=== PATIENT | female | born 1965 | race Two or more races ===

== ENCOUNTER 2019-07-09 09:27 | Inpatient (IN) | payer OTHER ==
[2019-07-09] MEDS ORDERED: IBUPROFEN 800 MG TABLET PO ONE (10:28)
--- NOTE | 2019-07-09 10:31 | ER Document Report ---
ED Medical Screen (RME) - General Chief Complaint: Foot Pain Stated Complaint: FOOT PAIN Time Seen by Provider: 07/09/19 10:09 Mode of Arrival: Wheelchair Information source: Patient Notes: This 54-year-old female Lao-speaking presents emergency department with complaints of bilateral leg pain. Patient has history of diabetes and high blood pressure. Patient has an ulcer to the right medial lower leg. Patient reports she has had an ulcer there for the last 8 to 10 months that is getting larger with pain increasing. Patient has been in the [place] for 1 month does not have a primary care provider. Reports she takes Lantus and metformin for her diabetes but does not check her sugar. She denies fever nausea vomiting reports a headache. Right medial lower leg with decubitus erythema some yellow drainage discoloration with good pedal pulse good cap refill. Patient also complains of bilateral hand pain. I have greeted and performed a rapid initial assessment of this patient. A comprehensive ED assessment and evaluation of the patient, analysis of test results and completion of the medical decision making process will be conducted by additional ED providers. Dictation of this chart was performed using voice recognition software; therefore, there may be some unintended grammatical errors. TRAVEL OUTSIDE OF THE [place] IN LAST 30 DAYS: No - Related Data Allergies/Adverse Reactions: No Known Allergies Allergy (Verified 07/09/19 09:28) Physical Exam - Vital signs Vitals: Temp Pulse Resp BP Pulse Ox 98.8 F 72 18 132/68 H 97 07/09/19 09:32 07/09/19 09:32 07/09/19 09:32 07/09/19 09:32 07/09/19 09:32 Course - Vital Signs Vital signs: Temp Pulse Resp BP Pulse Ox 98.8 F 72 18 132/68 H 97 07/09/19 09:32 07/09/19 09:32 07/09/19 09:32 07/09/19 09:32 07/09/19 09:32
[2019-07-09 11:06] LABS: ABSOLUTE EOSINOPHILS # (AUTO) 0.3 10^3/uL (0.0-0.6); ABSOLUTE MONOCYTES (AUTO) 0.5 10^3/uL (0.1-1.4); ABSOLUTE NEUT (AUTO) 6.5 10^3/uL (1.7-8.2); BASOPHILS % (AUTO) 0.4 % (0-2); HEMATOCRIT 38.9 % (36.0-47.0); HEMOGLOBIN 13.4 g/dL (12.0-15.5); MEAN CORPUSCULAR HGB CONC 34.5 g/dL (32.0-36.0); MEAN CORPUSCULAR VOLUME 90 fl (80-97); MONOCYTES % (AUTO) 5.2 % (3-13); PLATELET COUNT 204 10^3/uL (150-450); RED BLOOD COUNT 4.32 10^6/uL (3.72-5.28); SEGMENTED NEUTROPHILS % (AUTO) 62.4 % (42-78); TOTAL CELLS COUNTED % (AUTO) 100 %; WHITE BLOOD COUNT 10.4 10^3/uL (4.0-10.5)
[2019-07-09 11:21] LABS: ALBUMIN 4.1 g/dL (3.5-5.0); ALKALINE PHOSPHATASE 93 U/L (38-126); ANION GAP 11 (5-19); ASPARTATE AMINO TRANSFERASE 20 U/L (14-36); BILIRUBIN,DIRECT 0.2 mg/dL (0.0-0.4); BILIRUBIN,TOTAL 0.5 mg/dL (0.2-1.3); BLOOD UREA NITROGEN 17 mg/dL (7-20); CALCIUM 9.9 mg/dL (8.4-10.2); CARBON DIOXIDE 26 mmol/L (22-30); CHLORIDE 103 mmol/L (98-107); GLUCOSE 150 mg/dL (75-110); POTASSIUM 3.6 mmol/L (3.6-5.0); TOTAL PROTEIN 7.1 g/dL (6.3-8.2)
--- NOTE | 2019-07-09 11:46 | RADIOLOGY REPORT (SQ) ---
EXAM DESCRIPTION: TIBIA FIBULA RIGHT COMPLETED DATE/TIME: 07/09/2019 11:07 am REASON FOR STUDY: pain, ulcer COMPARISON: None. NUMBER OF VIEWS: Two views. TECHNIQUE: Two radiographic images acquired of the right tibia and fibula to include the knee and an kle in at least one projection. LIMITATIONS: None. FINDINGS: MINERALIZATION: Normal. BONES: There is periosteal reaction along the medial aspect of the proximal tibial shaft. SOFT TISSUES: Vascular calcifications. OTHER: No other significant finding. IMPRESSION: Osteomyelitis proximal tibia. TECHNICAL DOCUMENTATION: JOB ID: [id number] [employer]- All Rights Reserved Reading location - IP/workstation name: [email or web address]
--- NOTE | 2019-07-09 13:57 | ER Document Report ---
ED General - General Chief Complaint: Foot Pain Stated Complaint: FOOT PAIN Time Seen by Provider: 07/09/19 10:09 Mode of Arrival: Wheelchair Notes: 54-year-old female with history of insulin-dependent diabetes mellitus and hypertension presents to the emergency department with chief complaint of a large ulcer on her right medial malleolus that has been present for the past 1 year. Patient states that she has had persistent skin issues there for years. Patient has a remote history of a left leg surgery for venous insufficiency. Patient recently moved here from [place] approximately 1 month ago and has not had primary care. Patient denies any fevers or chills, nausea or vomiting, does complain of headache. Patient states that she does have tenderness over the right medial malleolus with some mild discharge. No other complaints. TRAVEL OUTSIDE OF THE [place] IN LAST 30 DAYS: No - Related Data Allergies/Adverse Reactions: No Known Allergies Allergy (Verified 07/09/19 09:28) Past Medical History - General Information source: Patient - Social History Smoking Status: Unknown if Ever Smoked Family History: None Patient has suicidal ideation: No Patient has homicidal ideation: No - Past Medical History Cardiac Medical History: Reports: Hx Hypertension Endocrine Medical History: Reports: Hx Diabetes Mellitus Type 1 Renal/ Medical History: Denies: Hx Peritoneal Dialysis Review of Systems - Review of Systems Constitutional: See HPI EENT: No symptoms reported Cardiovascular: No symptoms reported Respiratory: No symptoms reported Gastrointestinal: See HPI Genitourinary: No symptoms reported Female Genitourinary: No symptoms reported Musculoskeletal: No symptoms reported Skin: See HPI Hematologic/Lymphatic: No symptoms reported Neurological/Psychological: No symptoms reported Physical Exam - Vital signs Vitals: Temp Pulse Resp BP Pulse Ox 98.8 F 72 18 132/68 H 97 07/09/19 09:32 07/09/19 09:32 07/09/19 09:32 07/09/19 09:32 07/09/19 09:32 Course - Re-evaluation Re-evalutation: 07/09/19 14:09 Patient is well-appearing and nontoxic. X-ray showed a proximal right tibia osteomyelitis. I spoke with hospitalist, Dr. Samuels, who accepted patient for full admission to the medical floor. - Vital Signs Vital signs: Temp Pulse Resp BP Pulse Ox 98.8 F 72 18 132/68 H 97 07/09/19 09:32 07/09/19 09:32 07/09/19 09:32 07/09/19 09:32 07/09/19 09:32 - Laboratory Result Diagrams: 07/09/19 10:55 07/09/19 10:55 Laboratory results interpreted by me: 07/09/19 07/09/19 10:32 10:55 Creatinine 0.48 L Glucose 150 H POC Glucose 141 H Discharge - Discharge Clinical Impression: Osteomyelitis Qualifiers: Osteomyelitis type: unspecified type Osteomyelitis location: tibia Laterality: right Qualified Code(s): M86.9 - Osteomyelitis, unspecified Condition: Stable Disposition: ADMITTED INPATIENT Admitting Provider: Abril (Hospitalist) Unit Admitted: Medical Floor
[2019-07-09] MEDS ORDERED: TEMAZEPAM 7.5 MG CAPSULE PO PRN (16:16)
[2019-07-09] MEDS ORDERED: ACETAMINOPHEN 325 MG TABLET PO PRN (16:16)
[2019-07-09] MEDS ORDERED: MAG HYDROX/AL HYDROX/SIMETH SUSP 30 ML UDCUP PO PRN (16:16)
[2019-07-09] MEDS ORDERED: PROMETHAZINE HCL 25 MG TABLET PO PRN (16:16)
[2019-07-09] MEDS ORDERED: MAGNESIUM HYDROXIDE SUSP 30 ML UDCUP PO PRN (16:16)
[2019-07-09] MEDS ORDERED: IBUPROFEN 600 MG TABLET PO PRN (16:24)
[2019-07-09] MEDS ORDERED: GLUCAGON,HUMAN RECOMB 1 MG INJ IM PRN (16:24)
[2019-07-09] MEDS ORDERED: DEXTROSE 40% GEL 15 GM TUBE PO PRN ×2 (16:24)
[2019-07-09] MEDS ORDERED: DEXTROSE 50%-WATER 25 GM/50 ML DISP.SYRIN IV PRN ×2 (16:24)
--- NOTE | 2019-07-09 16:38 | PDOC H&P ---
History of Present Illness Admission Date/PCP: 07/09/19 14:28 Patient complains of: Painful ulcer right medial malleolus History of Present Illness: LORENA EDEN is a 54 year old female with history of left medial malleolar ulcer thought to be from venous insufficiency. There is an incision on her leg in the family states that after the incision the wound healed. It is likely a venous surgery. She has a similar ulcer on the right medial malleolus. It is quite painful. There was the pain that prompted the emergency department visit. She has a normal white blood cell count and a mildly elevated sed rate. Serum chemistries are unremarkable. She has a history of diabetes and plain films suggest osteomyelitis on the proximal tibia. She was referred to the hospital service for admission, further evaluation of osteomyelitis and wound care. Past Medical History Cardiac Medical History: Reports: Hypertension, Other - Venous insufficiency with ulceration EENT Medical History: Reports: None Neurological Medical History: Reports: None Endocrine Medical History: Reports: Diabetes Mellitus Type 2 Renal/ Medical History: Denies: Chronic Kidney Disease, Nephrolithiasis Malignancy Medical History: Reports: None GI Medical History: Reports: None Musculoskeltal Medical History: Reports: None Skin Medical History: Reports: None Psychiatric Medical History: Denies: Alcohol Dependency, Dementia, Depression, Substance Abuse, Tobacco Dependency Traumatic Medical History: Reports: None Hematology: Reports: None Infectious Medical History: Reports: None Past Surgical History Past Surgical History: Reports: Hysterectomy, Orthopedic Surgery - Left foot surgery, Vascular Surgery - Vein surgery left leg Social History Information Source: Patient, Relative - As the patient is only Slovak-speaking her daughter and son-in-law were able to interpret Lives with: Family Smoking Status: Never Smoker Frequency of Alcohol Use: None Hx Recreational Drug Use: No Hx Prescription Drug Abuse: No - Advance Directive Resuscitation Status: Full Code Surrogate healthcare decision maker:: The patient's daughter Family History Family History: None, DM Parental Family History Reviewed: Yes Children Family History Reviewed: Yes Sibling(s) Family History Reviewed.: Yes Medication/Allergy Home Medications: Cetirizine HCl [Zyrtec 10 mg Tablet] 10 mg PO DAILY 07/09/19 Glyburide [Diabeta 5 mg Tablet] 5 mg PO ACBRKFST 07/09/19 Ibuprofen [Motrin 800 mg Tablet] 800 mg PO Q8HP PRN 07/09/19 Insulin Glargine,Hum.rec.anlog [Lantus Insulin 100 Unit/1 ml 10 ml] 38 units SQ QPM 07/09/19 Losartan Potassium [Cozaar 50 mg Tablet] 50 mg PO DAILY 07/09/19 Allergies/Adverse Reactions: No Known Allergies Allergy (Verified 07/09/19 09:28) Review of Systems Constitutional: PRESENT: as per HPI. ABSENT: fever(s), headache(s) Eyes: ABSENT: visual disturbances Ears: ABSENT: hearing changes Nose, Mouth, and Throat: ABSENT: headache(s), mouth pain, sore throat Cardiovascular: PRESENT: edema, other - History of venous insufficiency and varicose veins. ABSENT: chest pain, dyspnea on exertion, palpitations Respiratory: ABSENT: cough, dyspnea, sputum Gastrointestinal: ABSENT: abdominal pain, bloating, constipation, diarrhea, heartburn, nausea, vomiting Genitourinary: ABSENT: difficulty urinating, dysuria, hematuria Musculoskeletal: ABSENT: back pain, deformity, joint swelling Integumentary: PRESENT: wounds - Ulceration right medial malleolus. Scar from previous ulcer left medial malleolus., other. ABSENT: rash Neurological: ABSENT: abnormal gait, abnormal speech, numbness, syncope, tremor(s) Psychiatric: ABSENT: anxiety, depression, hallucinations Endocrine: ABSENT: cold intolerance, heat intolerance, polydipsia, polyphagia, polyuria Hematologic/Lymphatic: ABSENT: easy bleeding, easy bruising, lymphadenopathy Allergic/Immunologic: ABSENT: seasonal rhinorrhea Physical Exam Vital Signs: Temp Pulse Resp BP Pulse Ox 97.5 F 50 L 16 149/67 H 100 07/09/19 15:55 07/09/19 15:55 07/09/19 15:55 07/09/19 15:55 07/09/19 15:55 Intake & Output 07/08/19 07/09/19 07/10/19 06:59 06:59 06:59 Weight 68.4 kg General appearance: PRESENT: no acute distress, cooperative, well-developed Head exam: PRESENT: atraumatic, normocephalic Eye exam: PRESENT: conjunctiva pink. ABSENT: conjunctival injection, scleral icterus Ear exam: PRESENT: normal external ear exam. ABSENT: bleeding, drainage Mouth exam: PRESENT: moist, neck supple, tongue midline Teeth exam: ABSENT: dental caries, poor dentation Neck exam: ABSENT: carotid bruit, JVD, lymphadenopathy, tenderness Respiratory exam: PRESENT: clear to auscultation flaquita, symmetrical, unlabored. ABSENT: accessory muscle use, rales, rhonchi, tachypnea, wheezes Cardiovascular exam: PRESENT: RRR, +S1, +S2. ABSENT: diastolic murmur, systolic murmur Pulses: PRESENT: normal radial pulses, normal dorsalis pedis pul GI/Abdominal exam: PRESENT: normal bowel sounds, soft. ABSENT: distended, guarding, tenderness Rectal exam: PRESENT: deferred Gentrourinary exam: ABSENT: indwelling catheter Extremities exam: PRESENT: other - Large ulcer right medial malleolus. ABSENT: clubbing, joint swelling, pedal edema Musculoskeletal exam: PRESENT: ambulatory, normal inspection - With the exception of the ulcer on the right leg. ABSENT: deformity Neurological exam: PRESENT: alert, awake, oriented to person, oriented to place, oriented to situation, CN II-XII grossly intact Psychiatric exam: PRESENT: appropriate affect. ABSENT: agitated, anxious Focused psych exam: ABSENT: delusional, restlessness Skin exam: PRESENT: dry, normal color, warm. ABSENT: rash Results Laboratory Results: 07/09/19 10:55 07/09/19 10:55 07/09/19 07/09/19 10:55 10:55 WBC 10.4 RBC 4.32 Hgb 13.4 Hct 38.9 MCV 90 MCH 31.0 MCHC 34.5 RDW 13.0 Plt Count 204 Seg Neutrophils % 62.4 Sodium 139.9 Potassium 3.6 Chloride 103 Carbon Dioxide 26 Anion Gap 11 BUN 17 Creatinine 0.48 L Est GFR ( Amer) > 60 Glucose 150 H Calcium 9.9 Total Bilirubin 0.5 AST 20 Alkaline Phosphatase 93 Total Protein 7.1 Albumin 4.1 Impressions: Tibia/Fibula X-Ray 07/09/19 10:26 IMPRESSION: Osteomyelitis proximal tibia. Assessment and Plan - Diagnosis (1) Osteomyelitis Qualifiers: Osteomyelitis type: other acute Osteomyelitis location: tibia Laterality: right Qualified Code(s): M86.161 - Other acute osteomyelitis, right tibia and fibula Is this a current diagnosis for this admission?: Yes Plan: 07/09/2019-the patient presented for painful right leg ulcer. Plain films demonstrated abnormal cortex on the proximal tibia. Her sed rate was slightly elevated at 36. Before initiating long-term antibiotics we will obtain an MRI study. (2) Ulcer of right lower leg Is this a current diagnosis for this admission?: Yes Plan: 07/09/2019-the patient has a history of venous insufficiency ulcer on the left medial malleolus. She had some type of vascular surgery on the left. The ulcer healed. It was likely a procedure for venous insufficiency. She is being seen at the wound clinic so I will have Dr. Mihaela Brunre consult while she is in the hospital. I have ordered venous studies as well. (3) Venous insufficiency of both lower extremities Is this a current diagnosis for this admission?: Yes Plan: 07/09/2019-she does have some varicosities and the family believes that the surgery on the left leg was related to her veins. Since the venous ulcer healed I agree. Ultrasound studies will be ordered. Dr. Mihaela Bruner will be seen the patient in consultation. (4) Diabetes mellitus type 2 in nonobese Is this a current diagnosis for this admission?: Yes Plan: 07/09/2019-we will continue the patient's Lantus, metformin and glyburide. She will also be on a sliding scale. Accu-Cheks before meals and at bedtime. - Time Time Spent with patient: 35 or more minutes Medications reviewed and adjusted accordingly: Yes Anticipated discharge: Home - Inpatient Certification Based on my medical assessment, after consideration of the patient's comorbidities, presenting symptoms, or acuity I expect that the services needed warrant INPATIENT care.: Yes I certify that my determination is in accordance with my understanding of Medicare's requirements for reasonable and necessary INPATIENT services [42 CFR 412.3e].: Yes Medical Necessity: Need for Pain Control, Need for IV Antibiotics Post Hospital Care: D/C Coating Engineer Documentation
[2019-07-09] MEDS ORDERED: VANCOMYCIN HCL 0 MG in DEXTROSE 5%-WATER 250 ML IV NR (16:45)
[2019-07-09] MEDS ORDERED: PIPERACILLIN/TAZOBACTAM 3.375 GM VIAL IV PRN (17:15)
[2019-07-09] MEDS ORDERED: VANCOMYCIN HCL INJ 1000 MG VIAL IV PRN (17:17)
[2019-07-09] MEDS ORDERED: INSULIN LISPRO 100 UNIT/ML 3 ML VIAL ONE (17:34)
[2019-07-09] MEDS ORDERED: INSULIN LISPRO 100 UNIT/ML 3 ML VIAL SUBCUT ONE (17:45)
[2019-07-09] MEDS ORDERED: VANCOMYCIN HCL INJ 1000 MG VIAL ONE (17:45)
[2019-07-09] MEDS ORDERED: VANCOMYCIN HCL INJ 500 MG VIAL ONE (17:45)
[2019-07-09] MEDS ORDERED: PIPERACILLIN/TAZOBACTAM 3.375 GM VIAL IV ONE (17:47)
[2019-07-09] MEDS: HYDROCORTISONE 1% CREAM 28.35 GM TP SCH (18:22)
[2019-07-09] MEDS: VANCOMYCIN HCL 1,250 MG in DEXTROSE 5%-WATER 250 ML IV SCH (18:22)
[2019-07-09] MEDS: PIPERACILLIN SODIUM/TAZOBACTAM 3.375 GM in NORMAL SALINE 100 ML IV SCH (20:19)
[2019-07-09] MEDS ORDERED: INSULIN GLARGINE,HUM.REC.ANLOG 1,000 UNIT/10 ML VIAL (PYX) SUBCUT ONE (21:32)
[2019-07-09] MEDS: INSULIN LISPRO 100 UNIT/ML 3 ML VIAL SUBCUT SCH (21:34)
[2019-07-09] MEDS: INSULIN GLARGINE,HUM.REC.ANLOG 1,000 UNIT/10 ML VIAL SUBCUT SCH (21:34)
[2019-07-09] MEDS: ATORVASTATIN CALCIUM 10 MG TABLET PO SCH (21:35)
[2019-07-10] MEDS: PIPERACILLIN SODIUM/TAZOBACTAM 3.375 GM in NORMAL SALINE 100 ML IV SCH ×4 (01:56→17:35)
[2019-07-10] MEDS: PANTOPRAZOLE SODIUM 40 MG TABLET.DR PO SCH (06:20)
[2019-07-10] MEDS: VANCOMYCIN HCL 1,250 MG in DEXTROSE 5%-WATER 250 ML IV SCH (07:29)
[2019-07-10] MEDS: METFORMIN HCL 500 MG TABLET PO SCH ×2 (07:31→17:35)
[2019-07-10] MEDS: INSULIN LISPRO 100 UNIT/ML 3 ML VIAL SUBCUT SCH ×4 (07:37→21:14)
[2019-07-10 08:10] LABS: ABSOLUTE EOSINOPHILS # (AUTO) 0.5 10^3/uL (0.0-0.6); ABSOLUTE LYMPHOCYTES (AUTO) 2.7 10^3/uL (0.5-4.7); ABSOLUTE MONOCYTES (AUTO) 0.4 10^3/uL (0.1-1.4); ABSOLUTE NEUT (AUTO) 3.5 10^3/uL (1.7-8.2); BASOPHILS % (AUTO) 0.5 % (0-2); EOSINOPHILS % (AUTO) 7.3 % (0-6); HEMATOCRIT 35.5 % (36.0-47.0); HEMOGLOBIN 12.4 g/dL (12.0-15.5); LYMPHOCYTES % (AUTO) 37.7 % (13-45); MEAN CORPUSCULAR HEMOGLOBIN 31.3 pg (27.0-33.4); MEAN CORPUSCULAR VOLUME 89 fl (80-97); MONOCYTES % (AUTO) 5.9 % (3-13); PLATELET COUNT 182 10^3/uL (150-450); RED BLOOD COUNT 3.97 10^6/uL (3.72-5.28); RED CELL DISTRIBUTION WIDTH 12.8 % (11.5-14.0); SEGMENTED NEUTROPHILS % (AUTO) 48.6 % (42-78); TOTAL CELLS COUNTED % (AUTO) 100 %; WHITE BLOOD COUNT 7.2 10^3/uL (4.0-10.5)
[2019-07-10 08:35] LABS: ANION GAP 8 (5-19); BLOOD UREA NITROGEN 15 mg/dL (7-20); CALCIUM 9.1 mg/dL (8.4-10.2); CARBON DIOXIDE 28 mmol/L (22-30); CHLORIDE 105 mmol/L (98-107); GLUCOSE 116 mg/dL (75-110); POTASSIUM 3.6 mmol/L (3.6-5.0)
[2019-07-10] MEDS: GLYBURIDE 5 MG TABLET PO SCH (08:38)
[2019-07-10] MEDS: HYDROCHLOROTHIAZIDE 25 MG TABLET PO SCH (09:47)
[2019-07-10] MEDS: ENOXAPARIN SODIUM INJ 40 MG/0.4 ML DISP.SYRIN SUBCUT SCH (09:47)
[2019-07-10] MEDS: HYDROCORTISONE 1% CREAM 28.35 GM TP SCH ×2 (09:48→17:37)
--- NOTE | 2019-07-10 14:57 | RADIOLOGY REPORT (SQ) ---
EXAM DESCRIPTION: MRI RT LOWER EXTREMITY WITHOUT COMPLETED DATE/TIME: 07/10/2019 2:33 pm REASON FOR STUDY: Osteomyelitis see plain film report COMPARISON: Right tibia and fibula 07/09/2019 TECHNIQUE: Multiplanar imaging of the left tibia and fibula to include fat and fluid sensitive seque nces. LIMITATIONS: None. FINDINGS: Prior plain films were reviewed. Along the right proximal tibial diaphysis, a focal cortical defect is present on plain films, with a 10 mm lytic bubbly lesion along the cortex. By MRI, there is no abnormal marrow signal to suggest th at this is active osteomyelitis. 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 A 10 cm long by 5 CM AP area of skin thickening, fibrosis in the subcutaneous fat, and skin ulceratio n is present along the lower right leg medially at and proximal to the medial malleolus. There are v enous varices in this area. No soft tissue abscess is identified. No abnormal underlying deep tissu e signal worrisome for osteomyelitis of the adjacent medial malleolus or distal tibia. Very limited view of the right ankle joint is unremarkable. IMPRESSION: 10 CM CRANIOCAUDAD BY 5.5 CM AP AREA OF SKIN THICKENING, SUBCUTANEOUS TISSUE FIBROSIS AN D SKIN ULCERATION WITHOUT DEEP TISSUE ABSCESS OR MARROW SIGNAL ABNORMALITIES WORRISOME FOR OSTEOMYELI TIS. PROMINENT VARICOSITIES IN THE MEDIAL RIGHT LOWER LEG TECHNICAL DOCUMENTATION: JOB ID: [id number] [employer]- All Rights Reserved Reading location - IP/workstation name: [email or web address]
[2019-07-10] MEDS: VANCOMYCIN HCL 1,000 MG in DEXTROSE 5%-WATER 250 ML IV SCH (17:35)
[2019-07-10] MEDS: INSULIN GLARGINE,HUM.REC.ANLOG 1,000 UNIT/10 ML VIAL SUBCUT SCH (21:18)
[2019-07-10] MEDS: ATORVASTATIN CALCIUM 10 MG TABLET PO SCH (21:18)
[2019-07-11] MEDS: PIPERACILLIN SODIUM/TAZOBACTAM 3.375 GM in NORMAL SALINE 100 ML IV SCH ×5 (02:41→23:17)
[2019-07-11] MEDS: PANTOPRAZOLE SODIUM 40 MG TABLET.DR PO SCH (05:39)
[2019-07-11] MEDS: VANCOMYCIN HCL 1,000 MG in DEXTROSE 5%-WATER 250 ML IV SCH ×2 (05:39→17:01)
[2019-07-11 06:43] LABS: VANCOMYCIN,TROUGH 10.6 ug/mL (5.0-20.0)
[2019-07-11] MEDS: GLYBURIDE 5 MG TABLET PO SCH (08:09)
[2019-07-11] MEDS: METFORMIN HCL 500 MG TABLET PO SCH ×2 (08:09→15:32)
[2019-07-11] MEDS: INSULIN LISPRO 100 UNIT/ML 3 ML VIAL SUBCUT SCH ×4 (08:20→23:17)
[2019-07-11] MEDS: HYDROCORTISONE 1% CREAM 28.35 GM TP SCH ×2 (09:31→17:03)
[2019-07-11] MEDS: ENOXAPARIN SODIUM INJ 40 MG/0.4 ML DISP.SYRIN SUBCUT SCH (09:31)
[2019-07-11] MEDS: HYDROCHLOROTHIAZIDE 25 MG TABLET PO SCH (09:31)
--- NOTE | 2019-07-11 09:32 | PDOC PROGRESS REPORT ---
Subjective Progress Note for:: 07/10/19 Subjective:: The patient is resting comfortably. No acute issues.. Her is at the bedside. Reason For Visit: VENOUS STASIS ULCER Physical Exam Vital Signs: Temp Pulse Resp BP Pulse Ox 97.5 F 55 L 15 141/68 H 99 07/10/19 23:52 07/10/19 23:52 07/10/19 23:52 07/10/19 23:52 07/10/19 23:52 Intake & Output 07/10/19 07/11/19 07/12/19 06:59 06:59 06:59 Intake Total 300 1376 Output Total 1 Balance 300 1375 Weight 62.5 kg 70 kg General appearance: PRESENT: no acute distress, cooperative, well-developed Head exam: PRESENT: atraumatic, normocephalic Respiratory exam: PRESENT: clear to auscultation flaquita, symmetrical, unlabored. ABSENT: chest wall tenderness, rales, rhonchi, tachypnea, wheezes Cardiovascular exam: PRESENT: RRR, +S1, +S2 GI/Abdominal exam: PRESENT: normal bowel sounds, soft. ABSENT: distended, tenderness Gentrourinary exam: ABSENT: indwelling catheter Extremities exam: PRESENT: other - There is a large Kerlix dressing on the right ankle. Neurological exam: PRESENT: alert, awake, oriented to person, oriented to place, oriented to time, oriented to situation, CN II-XII grossly intact Psychiatric exam: PRESENT: appropriate affect. ABSENT: agitated, anxious Focused psych exam: ABSENT: delusional, restlessness Results Laboratory Results: 07/10/19 07:43 07/10/19 07:43 Impressions: Tibia/Fibula X-Ray 07/09/19 10:26 IMPRESSION: Osteomyelitis proximal tibia. Lower Extremity MRI 07/10/19 08:00 IMPRESSION: 10 CM CRANIOCAUDAD BY 5.5 CM AP AREA OF SKIN THICKENING, SUBCUTAN EOUS TISSUE FIBROSIS AND SKIN ULCERATION WITHOUT DEEP TISSUE ABSCESS OR MARROW SIGNAL ABNORMALITIES WORRISOME FOR OSTEOMYELITIS. PROMINENT VARICOSITIES IN THE MEDIAL RIGHT LOWER LEG Assessment and Plan - Diagnosis (1) Osteomyelitis Qualifiers: Osteomyelitis type: other acute Osteomyelitis location: tibia Laterality: right Qualified Code(s): M86.161 - Other acute osteomyelitis, right tibia and fibula Is this a current diagnosis for this admission?: Yes Plan: 07/09/2019-the patient presented for painful right leg ulcer. Plain films demonstrated abnormal cortex on the proximal tibia. Her sed rate was slightly elevated at 36. Before initiating long-term antibiotics we will obtain an MRI study. 07/10/2018-osteomyelitis is ruled out by MRI. The patient will not need PICC line or 6 weeks of IV antibiotics. (2) Ulcer of right lower leg Is this a current diagnosis for this admission?: Yes Plan: 07/09/2019-the patient has a history of venous insufficiency ulcer on the left medial malleolus. She had some type of vascular surgery on the left. The ulcer healed. It was likely a procedure for venous insufficiency. She is being seen at the wound clinic so I will have Dr. Mihaela Bruner consult while she is in the hospital. I have ordered venous studies as well. 07/10/2019-the patient had a similar venous stasis ulcer on her left ankle. She had vein surgery and it subsequently healed. The patient is going to be seen by Dr. Mihaela Bruner. She already is a patient at the wound care center. She will complete a course of antibiotics for infection however it is very difficult to tell if these type of ulcers are infected. They always have erythema and they are always painful. The patient did not have a white blood cell count and may be able to just discontinue antibiotics. The patient should follow-up with the wound care center post discharge. (3) Venous insufficiency of both lower extremities Is this a current diagnosis for this admission?: Yes Plan: 07/09/2019-she does have some varicosities and the family believes that the surgery on the left leg was related to her veins. Since the venous ulcer healed I agree. Ultrasound studies will be ordered. Dr. Mihaela Bruner will be seen the patient in consultation. 07/10/2019-radiology called me. The specific test for venous reflux is not available at this facility. They will do an ultrasound study of the veins in the leg and the tach will try to see if she could elicit reflux. She might be able to have this study as an outpatient from the wound clinic. She did have surgery on the left leg and the ulcer subsequently healed. Hopefully we can bring about the same results on her right leg. (4) Diabetes mellitus type 2 in nonobese Is this a current diagnosis for this admission?: Yes Plan: 07/09/2019-we will continue the patient's Lantus, metformin and glyburide. She will also be on a sliding scale. Accu-Cheks before meals and at bedtime. 07/10/2019-the patient's hemoglobin A1c was 9.9. It is not clear if she is on a strict diabetic diet at home. We will need to monitor her Accu-Cheks. We can adjust her medication regimen based on the Accu-Cheks. In her case it appears that she may have hypoglycemia. Continue to monitor Accu-Cheks and adjust her regimen accordingly.
--- NOTE | 2019-07-11 19:45 | PDOC PROGRESS REPORT ---
Subjective Progress Note for:: 07/11/19 Subjective:: This is a 54 year old female with with DM 2 and venous insufficiency who was admitted for a cellulitis on the right ankle. No acute event overnight. Wound appears slightly erythematous with no active drainage. She says she has pain and swelling have improved. Reason For Visit: VENOUS STASIS ULCER Physical Exam Vital Signs: Temp Pulse Resp BP Pulse Ox 98.3 F 71 20 142/73 H 98 07/11/19 16:00 07/11/19 16:00 07/11/19 16:00 07/11/19 16:00 07/11/19 16:00 Intake & Output 07/10/19 07/11/19 07/12/19 06:59 06:59 06:59 Intake Total 300 1376 350 Output Total 1 Balance 300 1375 350 Weight 137 lb 12.623 oz 154 lb 5.177 oz General appearance: PRESENT: no acute distress, well-developed, well-nourished Head exam: PRESENT: atraumatic, normocephalic Eye exam: PRESENT: conjunctiva pink, EOMI, PERRLA. ABSENT: scleral icterus Ear exam: PRESENT: normal external ear exam Mouth exam: PRESENT: moist, tongue midline Neck exam: ABSENT: carotid bruit, JVD, lymphadenopathy, thyromegaly Respiratory exam: PRESENT: clear to auscultation flaquita. ABSENT: rales, rhonchi, wheezes Cardiovascular exam: PRESENT: RRR. ABSENT: diastolic murmur, rubs, systolic murmur Pulses: PRESENT: normal dorsalis pedis pul GI/Abdominal exam: PRESENT: normal bowel sounds, soft. ABSENT: distended, guarding, mass, organolmegaly, rebound, tenderness Rectal exam: PRESENT: deferred Neurological exam: PRESENT: alert, awake, oriented to person, oriented to place, oriented to time, oriented to situation, CN II-XII grossly intact. ABSENT: motor sensory deficit Results Laboratory Results: 07/10/19 07:43 07/10/19 07:43 Impressions: Tibia/Fibula X-Ray 07/09/19 10:26 IMPRESSION: Osteomyelitis proximal tibia. Lower Extremity MRI 07/10/19 08:00 IMPRESSION: 10 CM CRANIOCAUDAD BY 5.5 CM AP AREA OF SKIN THICKENING, SUBCUTANEOUS TISSUE FIBROSIS AND SKIN ULCERATION WITHOUT DEEP TISSUE ABSCESS OR MARROW SIGNAL ABNORMALITIES WORRISOME FOR OSTEOMYELITIS. PROMINENT VARICOSITIES IN THE MEDIAL RIGHT LOWER LEG Assessment and Plan - Diagnosis (1) Cellulitis of right ankle Is this a current diagnosis for this admission?: Yes Plan: continue IV antibiotics. (2) Ulcer of right lower leg Is this a current diagnosis for this admission?: Yes Plan: As per #1. Wound culture obtained. (3) Diabetes mellitus type 2 in nonobese Is this a current diagnosis for this admission?: Yes Plan: Continue Lantus and metformin. - Time Time Spent with patient: 15-24 minutes
[2019-07-11] MEDS: INSULIN GLARGINE,HUM.REC.ANLOG 1,000 UNIT/10 ML VIAL SUBCUT SCH (23:17)
[2019-07-11] MEDS: ATORVASTATIN CALCIUM 10 MG TABLET PO SCH (23:17)
[2019-07-12] MEDS: PIPERACILLIN SODIUM/TAZOBACTAM 3.375 GM in NORMAL SALINE 100 ML IV SCH ×2 (06:10→12:31)
[2019-07-12] MEDS: PANTOPRAZOLE SODIUM 40 MG TABLET.DR PO SCH (06:11)
[2019-07-12] MEDS: VANCOMYCIN HCL 1,000 MG in DEXTROSE 5%-WATER 250 ML IV SCH (06:19)
[2019-07-12] MEDS: INSULIN LISPRO 100 UNIT/ML 3 ML VIAL SUBCUT SCH ×2 (08:59→12:18)
[2019-07-12] MEDS: GLYBURIDE 5 MG TABLET PO SCH (09:16)
[2019-07-12] MEDS: METFORMIN HCL 500 MG TABLET PO SCH (09:17)
[2019-07-12] MEDS: HYDROCORTISONE 1% CREAM 28.35 GM TP SCH (09:17)
[2019-07-12] MEDS: HYDROCHLOROTHIAZIDE 25 MG TABLET PO SCH (09:17)
[2019-07-12] MEDS: ENOXAPARIN SODIUM INJ 40 MG/0.4 ML DISP.SYRIN SUBCUT SCH (09:18)
[2019-07-12 15:52] VITALS: BP 133/67
--- NOTE | 2019-07-13 18:10 | PDOC DISCHARGE SUMMARY ---
General - Admit/Disc Date/PCP Admission Date/Primary Care Provider: 07/09/19 14:28 Discharge Date: 07/13/19 - Discharge Diagnosis (1) Cellulitis of right ankle Is this a current diagnosis for this admission?: Yes (2) Ulcer of right lower leg Is this a current diagnosis for this admission?: Yes (3) Diabetes mellitus type 2 in nonobese Is this a current diagnosis for this admission?: Yes - Additional Information Resuscitation Status: Full Code Discharge Diet: As Tolerated, Diabetic Discharge Activity: Activity As Tolerated Prescriptions: Sulfamethoxazole/Trimethoprim [Bactrim Ds Tablet] 1 each PO BID 5 Days #10 tablet Metformin HCl [Glucophage 500 mg Tablet] 1,000 mg PO BIDACBS #60 tablet Atorvastatin Calcium [Lipitor 10 mg Tablet] 10 mg PO QHS #30 tablet Home Medications: Cetirizine HCl [Zyrtec 10 mg Tablet] 10 mg PO DAILY 07/09/19 Glyburide [Diabeta 5 mg Tablet] 5 mg PO ACBRKFST 07/09/19 Ibuprofen [Motrin 800 mg Tablet] 800 mg PO Q8HP PRN 07/09/19 Insulin Glargine,Hum.rec.anlog [Lantus Insulin 100 Unit/1 ml 10 ml] 38 units SQ QPM 07/09/19 Losartan Potassium [Cozaar 50 mg Tablet] 50 mg PO DAILY 07/09/19 Atorvastatin Calcium [Lipitor 10 mg Tablet] 10 mg PO QHS #30 tablet 07/12/19 Metformin HCl [Glucophage 500 mg Tablet] 1,000 mg PO BIDACBS #60 tablet 07/12/19 Sulfamethoxazole/Trimethoprim [Bactrim Ds Tablet] 1 each PO BID 5 Days #10 tablet 07/12/19 History of Present Illness History of Present Illness: Admitting hospitalist's H&P: LORENA EDEN is a 54 year old female with history of left medial malleolar ulcer thought to be from venous insufficiency. There is an incision on her leg in the family states that after the incision the wound healed. It is likely a venous surgery. She has a similar ulcer on the right medial malleolus. It is quite painful. There was the pain that prompted the emergency department visit. She has a normal white blood cell count and a mildly elevated sed rate. Serum chemistries are unremarkable. She has a history of diabetes and plain films suggest osteomyelitis on the proximal tibia. She was referred to the hospital service for admission, further evaluation of osteomyelitis and wound care. Hospital Course Hospital Course: This is a 54 year old female with with DM 2 and venous insufficiency who was admitted for a cellulitis on the right ankle related to a chronic likely venous ulcer. She was started on IV antibiotics. The erythema and tenderness did improve. She was eventually switched and will be discharged on PO Bactrim. She will closely follow-up with Dr. Bruner. Metformin was also added to her regim en at this admission. Physical Exam Vital Signs: Temp Pulse Resp BP Pulse Ox 97.7 F 57 L 18 126/75 H 100 07/12/19 15:01 07/12/19 15:01 07/12/19 15:01 07/12/19 15:01 07/12/19 15:01 Intake & Output 07/12/19 07/13/19 07/14/19 06:59 06:59 06:59 Intake Total 1450 1046 Output Total 2 2 Balance 1448 1044 Weight 139 lb 12.369 oz General appearance: PRESENT: no acute distress, well-developed, well-nourished Head exam: PRESENT: atraumatic, normocephalic Eye exam: PRESENT: conjunctiva pink, EOMI, PERRLA. ABSENT: scleral icterus Ear exam: PRESENT: normal external ear exam Neck exam: ABSENT: carotid bruit, JVD, lymphadenopathy, thyromegaly Respiratory exam: PRESENT: clear to auscultation flaquita. ABSENT: rales, rhonchi, wheezes Cardiovascular exam: PRESENT: RRR. ABSENT: diastolic murmur, rubs, systolic murmur Pulses: PRESENT: normal dorsalis pedis pul GI/Abdominal exam: PRESENT: normal bowel sounds, soft. ABSENT: distended, guarding, mass, organolmegaly, rebound, tenderness Rectal exam: PRESENT: deferred Extremities exam: PRESENT: other - chronic ulcer on right ankle Neurological exam: PRESENT: alert, awake, oriented to person, oriented to place, oriented to time, oriented to situation, CN II-XII grossly intact. ABSENT: motor sensory deficit Results Laboratory Results: 07/10/19 07:43 07/10/19 07:43 07/11/19 12:45 Leg - Lower Gram Stain - Final Impressions: Tibia/Fibula X-Ray 07/09/19 10:26 IMPRESSION: Osteomyelitis proximal tibia. Lower Extremity MRI 07/10/19 08:00 IMPRESSION: 10 CM CRANIOCAUDAD BY 5.5 CM AP AREA OF SKIN THICKENING, SUBCUTANEOUS TISSUE FIBROSIS AND SKIN ULCERATION WITHOUT DEEP TISSUE ABSCESS OR MARROW SIGNAL ABNORMALITIES WORRISOME FOR OSTEOMYELITIS. PROMINENT VARICOSITIES IN THE MEDIAL RIGHT LOWER LEG Qualifiers - * PATIENT BEING DISCHARGED WITH ANY OF THE FOLLOWING DIAGNOSIS: No Acute Heart Failure - Is this a Heart Failure Patient?: No
== END 2019-07-12 16:12 | disposition home health service (06) | DRG 638 ==
LOC: ER 09:27 → EH 14:28 → 4S 15:52
PROVIDERS: ADMIT Hospitalist; ATTEND Hospitalist
DX: E11.621 Type 2 diabetes mellitus with foot ulcer (principal); L03.115 Cellulitis of right lower limb; L97.319 Non-pressure chronic ulcer of right ankle with unspecified severity; I10 Essential (primary) hypertension; Z83.3 Family history of diabetes mellitus; Z79.4 Long term (current) use of insulin; Z79.899 Other long term (current) drug therapy
CPT/HCPCS: 36415; 80048; 80053; 80202; 82962; 83036; 83735; 85025; 85652; 87070; 87077; 87186; 87205; 99284; J1650; J1815; J2543; J3370; J3490; J7050; J7060

== ENCOUNTER → 2019-08-01 | Outpatient (CLI) | payer OTHER ==
--- NOTE | 2019-08-02 16:42 | XCELERA REPORT ---
[address] [address] Lower Extremity Arterial Evaluation Name: LORENA EDEN Age: 54 yrs Gender: Female : 1965 Patient Status: Outpatient Patient Location: [facility] Study Date: 08/01/2019 02:17 PM Procedure: A color flow and duplex scan of the lower extremity arteries was performed bilaterally with velocity and waveform anaylsis. Reason For Study: PVD Ordering Physician: SAVANNAH WONG Performed By: Soham Young Measurements and Calculations Right Left SOLE FILLER PSV 145.4 155.6 cm/sec Prox PFA PSV -79.6 82.5 cm/sec Prox SFA PSV 119.4 122.9 cm/sec Mid SFA PSV -130.1 -117.5cm/sec Dist SFA PSV -103.1 -104.2cm/sec Prox Pop A PSV 94.7 92.6 cm/sec Dist KEI PSV 103.1 69.1 cm/sec Mid STAFF MIDWIFE/APPRENTICESHIP DIRECTOR PSV 93.3 cm/sec Dist STAFF MIDWIFE/APPRENTICESHIP DIRECTOR PSV 130.1 cm/sec Seth Pedis PSV 95.6 -86.4 cm/sec Right Side Arterial Evaluation Normal velocity and triphasic waveforms noted from the Common Femoral artery to the infrageniculate vessels . Hyperemic flow in the infrageniculate vessels. Ankle Brachial index not ordered. Left Side Arterial Evaluation Normal velocity and triphasic waveforms noted from the Common Femoral artery to the infrageniculate vessels . Hyperemic flow in the Dorsalis Pedis vessels. Ankle Brachial index not ordered. Interpretation Summary No hemodynamically significant lesions in the bilateral lower extremities, on duplex imaging, at rest. : SAVANNAH WONG > Savannah Wong
== END ==
LOC: SP 14:00
PROVIDERS: ATTEND Surgery
DX: I87.2 Venous insufficiency (chronic) (peripheral) (principal); M86.9 Osteomyelitis, unspecified
CPT/HCPCS: 93925; 93970

== ENCOUNTER 2019-09-06 20:40 | Emergency (ER) | payer OTHER ==
--- NOTE | 2019-09-06 23:07 | RADIOLOGY REPORT (SQ) ---
EXAM DESCRIPTION: XR CHEST 2 VIEWS COMPLETED DATE/TME: 09/06/2019 00:00 CLINICAL HISTORY: 54 years Female, cp COMPARISON: None. NUMBER OF VIEWS/TECHNIQUE: 2, Frontal, Lateral FINDINGS: Adequate lung volume, clear parenchyma, normal cardiac silhouette, and intact bony thorax. IMPRESSION: No acute cardiopulmonary findings.
--- NOTE | 2019-09-06 23:50 | EKG REPORT ---
SEVERITY:- ABNORMAL ECG - SINUS RHYTHM RBBB AND LPFB : Confirmed by: Alanis Pacheco 06-Sep-2019 23:50:00
[2019-09-07 00:48] LABS: INTERNATIONAL RATION (INR) 0.98
[2019-09-07 00:49] LABS: ABSOLUTE BASOPHILS # (AUTO) 0.1 10^3/uL (0.0-0.2); ABSOLUTE EOSINOPHILS # (AUTO) 0.3 10^3/uL (0.0-0.6); ABSOLUTE LYMPHOCYTES (AUTO) 3.2 10^3/uL (0.5-4.7); ABSOLUTE MONOCYTES (AUTO) 0.7 10^3/uL (0.1-1.4); ABSOLUTE NEUT (AUTO) 4.5 10^3/uL (1.7-8.2); BASOPHILS % (AUTO) 0.6 % (0-2); EOSINOPHILS % (AUTO) 3.2 % (0-6); HEMATOCRIT 35.3 % (36.0-47.0); HEMOGLOBIN 12.5 g/dL (12.0-15.5); LYMPHOCYTES % (AUTO) 36.4 % (13-45); MEAN CORPUSCULAR HEMOGLOBIN 32.2 pg (27.0-33.4); MEAN CORPUSCULAR HGB CONC 35.3 g/dL (32.0-36.0); MEAN CORPUSCULAR VOLUME 91 fl (80-97); MONOCYTES % (AUTO) 8.2 % (3-13); PLATELET COUNT 232 10^3/uL (150-450); RED BLOOD COUNT 3.87 10^6/uL (3.72-5.28); RED CELL DISTRIBUTION WIDTH 14.2 % (11.5-14.0); SEGMENTED NEUTROPHILS % (AUTO) 51.6 % (42-78); TOTAL CELLS COUNTED % (AUTO) 100 %; WHITE BLOOD COUNT 8.7 10^3/uL (4.0-10.5)
[2019-09-07 01:04] LABS: ALBUMIN 4.1 g/dL (3.5-5.0); ALKALINE PHOSPHATASE 81 U/L (38-126); ANION GAP 10 (5-19); ASPARTATE AMINO TRANSFERASE 20 U/L (14-36); BILIRUBIN,DIRECT 0.1 mg/dL (0.0-0.4); BILIRUBIN,TOTAL 0.5 mg/dL (0.2-1.3); BLOOD UREA NITROGEN 18 mg/dL (7-20); CALCIUM 9.6 mg/dL (8.4-10.2); CARBON DIOXIDE 27 mmol/L (22-30); CHLORIDE 99 mmol/L (98-107); CREATINE KINASE 28 U/L (30-135); GLUCOSE 225 mg/dL (75-110); POTASSIUM 3.9 mmol/L (3.6-5.0); TOTAL PROTEIN 7.3 g/dL (6.3-8.2)
[2019-09-07 01:17] LABS: TROPONIN I < 0.012 ng/mL
--- NOTE | 2019-09-07 01:36 | ER Document Report ---
ED General - General Chief Complaint: Chest Pain Stated Complaint: CHEST PAIN Time Seen by Provider: 09/07/19 01:16 TRAVEL OUTSIDE OF THE [place] IN LAST 30 DAYS: No - Related Data Allergies/Adverse Reactions: No Known Allergies Allergy (Verified 09/06/19 22:25) Past Medical History - Social History Smoking Status: Never Smoker Family History: None, DM Patient has suicidal ideation: No Patient has homicidal ideation: No - Past Medical History Cardiac Medical History: Reports: Hx Hypertension Endocrine Medical History: Reports: Hx Diabetes Mellitus Type 1, Hx Diabetes Mellitus Type 2 Renal/ Medical History: Denies: Hx Peritoneal Dialysis Psychiatric Medical History: Denies: Hx Dementia, Hx Depression Past Surgical History: Reports: Hx Hysterectomy, Hx Orthopedic Surgery - Left foot surgery, Hx Vascular Surgery - Vein surgery left leg Physical Exam - Vital signs Vitals: Temp Pulse Resp BP Pulse Ox 98.5 F 82 18 139/74 H 98 09/06/19 20:49 09/06/19 20:49 09/06/19 20:49 09/06/19 20:49 09/06/19 20:49 - Notes Notes: Patient presents to respond claims chest pain is gone for the past 3 days. Pain is located left anterior chest and radiates up into her shoulder and down her a rm. She describes as a pressure sensation. She denies any nausea vomiting diaphoresis shortness of breath fever cough associated with this. Denies any trauma or falls. His pain gets worse when she moves her arm but does not change when he takes a deep breath or moves around. Patient says she is been taking Motrin every 8 hours which seems to control the pain significantly then goes away. Today the Motrin did not help. Past medical history sniffing for diabetes hypertension elevated cholesterol recent surgery on her right leg to remove veins. This was done in the office. She has no history of heart disease. Social history does not smoke or drink at all. Family history she has had a diet dad at age 50 from a heart attack PHYSICAL EXAMINATION: Vital signs noted she is in no acute distress GENERAL: Well-appearing, well-nourished and in no acute distress. HEAD: Atraumatic, normocephalic. EYES: Pupils equal round and reactive to light, extraocular movements intact, sclera anicteric, conjunctiva are normal. ENT: nares patent, oropharynx clear without exudates. Moist mucous membranes. NECK: Normal range of motion, supple without lymphadenopathy nontender to midl ine. There is no tenderness in the trapezius muscles LUNGS: Breath sounds clear to auscultation bilaterally and equal. No wheezes rales or rhonchi. She does have tenderness over the left anterior chest extending up to the clavicle that reproduces her pain. Is no crepitus or lesions HEART: Regular rate and rhythm without murmurs ABDOMEN: Soft, nontender, normoactive bowel sounds. No guarding, no rebound. No masses appreciated. EXTREMITIES: She has no palpable cords or edema. Dressing placed on the right lower extremity left upper extremity clavicle and AC joint are nontender she has tenderness over the biceps tendon over the lateral aspect the of the shoulder. The elbow and wrist are nontender. Good range of motion of the of the shoulder she can only abduct to about 80 degrees and cannot hold it against resistance. Passively she has significant pain above that NEUROLOGICAL: No focal neurological deficits. Moves all extremities spontaneously and on command. Motor strength is 5/5 left upper extremity flexion extension of the elbow wrist tension machine operator motor function intact axillary nerve sENS intact to light touch PSYCH: Normal mood, normal affect. SKIN: Warm, Dry, normal turgor, no rashes or lesions noted. Course - Vital Signs Vital signs: Temp Pulse Resp BP Pulse Ox 98.5 F 82 13 142/77 H 99 09/06/19 20:49 09/06/19 20:49 09/07/19 01:01 09/07/19 01:00 09/07/19 01:01 - Laboratory Result Diagrams: 09/07/19 00:35 09/07/19 00:35 Laboratory results interpreted by me: 09/07/19 09/07/19 00:35 00:35 Hct 35.3 L RDW 14.2 H Sodium 135.8 L Creatinine 0.44 L Glucose 225 H Creatine Kinase 28 L Discharge - Discharge Clinical Impression: Chest pain in adult, Left shoulder strain Disposition: HOME, SELF-CARE Instructions: Chest Wall Pain ([facility]) Additional Instructions: Please review the discharge instructions Rest, you can use a heating pad to your shoulder You continue to take 2 Motrin 4 times a day Follow-up in the clinic in 2 to 3 days for recheck If you get worse Forms: Elevated Blood Pressure
[2019-09-07 02:11] VITALS: BP 156/82
== END 2019-09-07 02:14 | disposition home or self-care (01) ==
LOC: ER 20:40
DX: S46.912A Strain of unspecified muscle, fascia and tendon at shoulder and upper arm level, left arm, initial encounter (principal); R07.9 Chest pain, unspecified; X58.XXXA Exposure to other specified factors, initial encounter; I10 Essential (primary) hypertension; E11.9 Type 2 diabetes mellitus without complications; Z90.710 Acquired absence of both cervix and uterus; Z98.890 Other specified postprocedural states
CPT/HCPCS: 36415; 71046; 80053; 82550; 82553; 84484; 85025; 85610; 93005; 93010

== ENCOUNTER → 2019-09-18 | Outpatient (CLI) | payer OTHER ==
--- NOTE | 2019-09-18 15:04 | RADIOLOGY REPORT (SQ) ---
EXAM DESCRIPTION: VENOUS UNILATERAL LOWER COMPLETED DATE/TIME: 09/18/2019 11:03 am REASON FOR STUDY: RLE PAIN, S/P RFA M79.606 PAIN IN LEG, UNSPECIFIED COMPARISON: None. TECHNIQUE: Dynamic and static lara scale and color images acquired of the right leg venous system. S elected spectral images acquired with additional compression and augmentation maneuvers. The contrala teral common femoral vein and saphenofemoral junction were also imaged. Images stored on PACS. LIMITATIONS: None. FINDINGS: RIGHT COMMON FEMORAL: Normal phasicity, compression and augmentation. No visualized echogenic material on g ray scale. No defects on color images. FEMORAL: Normal compression and augmentation. No visualized echogenic material on lara scale. No defe cts on color images. POPLITEAL: Normal compression, augmentation. No visualized echogenic material on lara scale. No defec ts on color images. CALF VESSELS: Normal compression, augmentation. No visualized echogenic material on lara scale. No de fects on color images. GSV: The patient is post right EVLT with ablation of the greater saphenous vein from the saphenous fe moral junction down to the mid calf. The greater saphenous vein is thrombosed. No flow is identifie d from the saphenous femoral junction down to the mid calf. Deep to an incision along the mid 3rd ri ght thigh, a focal hematoma is present measuring about 3.2 by 3 by 2 cm in size. These findings were discussed with Dr. Bruner. ANY DEEP VENOUS INSUFFICIENCY: Not evaluated. ANY EVIDENCE OF POPLITEAL CYST: No. OTHER: No other significant finding. LEFT COMMON FEMORAL VEIN AND SAPHENOFEMORAL JUNCTION: Normal phasicity, compression and augmentation. No visualized echogenic material on lara scale. No de fects on color images. IMPRESSION: No Doppler evidence of right lower extremity deep venous thrombosis. Expected saphenous vein thrombosis post right EVLT with ablation of the greater saphenous vein. Smal l hematoma along the mid 3rd right thigh at site of phlebectomy. Results discussed with Dr. Bruner TECHNICAL DOCUMENTATION: JOB ID: [id number] [employer]- All Rights Reserved Reading location - IP/workstation name: [email or web address]
== END ==
LOC: SP 09:50
PROVIDERS: ATTEND Surgery
DX: M79.606 Pain in leg, unspecified (principal)
CPT/HCPCS: 93971